=== PATIENT | female | born 1985 | race Caucasian/White ===

== ENCOUNTER 2020-11-28 12:32 | Outpatient (REF) | payer OTHER, SELFPAY ==
--- NOTE | 2020-11-28 10:30 | PAPFT_PTH ---
PATIENT: Allen Lopez LOC: [facility]#:[id number] AGE/SX: 35/F ROOM: RE11/28/[address]: Sepideh Skelton : 1985 BED: DIS: 11/28/2020 SPEC #: [id number] RECD: 11/29/20 13:11 STATUS: TANESHA REQ #: [id number] ZACH: 11/28/20 10:[address]: NafisaPatricia DEPT: [facility] Cytology RECD BY: Zoraida Romero ENTERED: 11/29/20 13:12 SP TYPE: PAPFT OTHR DR: Shelton Babcock Tissues: 1 - CX/ENDOCX FOR PAP SMEARS Procedures: PAP THIN PREP/[facility] Screening HPV DNA PROBE Comments: [id number] (CHLAMYDIA/GC)
[2020-11-28 20:32] LABS: Hemoglobin A1C 5.1 % (<5.7)
[2020-11-28 20:43] LABS: ALT 28 U/L (14-59); AST 18 U/L (15-37); Albumin 3.9 g/dL (3.4-5.0); Alkaline Phosphatase 63 U/L (46-116); Anion Gap 13.4 mmol/L (3-11); BUN 10 mg/dL (7-18); Bilirubin, Total 0.4 mg/dL (0.2-1.0); CO2 22.6 mmol/L (21.0-32.0); CREATININE 0.6 mg/dL (0.55-1.02); Calcium 8.9 mg/dL (8.5-10.1); Calculated LDL 119 mg/dL (<100); Chloride 104 mmol/L (98-107); Cholesterol 198 mg/dL (<200); Glucose 89 mg/dL (74-106); HDL Cholesterol 43 mg/dL (40-60); Potassium 4.2 mmol/L (3.5-5.1); Sodium 140 mmol/L (136-145); TSH 0.88 uIU/mL (0.36-3.74); Total Protein 7.2 g/dL (6.4-8.2); Triglyceride 180 mg/dL (<150)
[2020-11-30 10:25] LABS: Hep A Total Ab w Rflx IgM Negative (Negative)
[2020-11-30 10:28] LABS: HIV-1/2 Ag & Ab Screen Negative (Negative)
[2020-11-30 10:33] LABS: Hepatitis C Ab w Rflx HCV PCR Negative (Negative)
[2020-11-30 10:58] LABS: Syphilis Serology (RPR) Negative (Negative)
[2020-11-30 15:20] LABS: Chlamydia Result Negative (Negative); GC Result Negative (Negative)
== END 2020-11-28 12:33 | disposition home or self-care (01) ==
LOC: NCHCN 12:32
PROVIDERS: PCP Internal Medicine; Visit Provider Nurse Practitioner Family
DX: Z00.00 Encounter for general adult medical examination without abnormal findings (principal); Z68.41 Body mass index [BMI] 40.0-44.9, adult; Z13.220 Encounter for screening for lipoid disorders; Z13.1 Encounter for screening for diabetes mellitus; Z20.9 Contact with and (suspected) exposure to unspecified communicable disease; Z11.59 Encounter for screening for other viral diseases; Z11.4 Encounter for screening for human immunodeficiency virus [HIV]; Z12.4 Encounter for screening for malignant neoplasm of cervix; Z11.51 Encounter for screening for human papillomavirus (HPV)
CPT/HCPCS: 80053; 80061; 86709; 86803; 87389; 87491; 87591; 88142; 83036; 84443; 86592; 87624

== ENCOUNTER 2022-01-21 10:55 | Outpatient (REF) | payer SELFPAY ==
[2022-01-21 18:48] LABS: Bilirubin Negative (Negative); Blood Trace-intact (Negative); Clarity Cloudy (Clear); Glucose Negative (Negative); Ketones Negative (Negative); Leukocyte Esterase Trace (Negative); Nitrite Negative (Negative); Specific Gravity >= 1.030 (1.005-1.025); Urobilinogen 0.2 EU/dL (Up TO 0.2)
[2022-01-21 18:57] LABS: C & S Indicated? Yes; Crystals Many Amorphous HPF (Negative); Epithelial Cells Few HPF (Negative); RBC 0-2 HPF (0-2); WBC 0-2 HPF (0-5)
== END 2022-01-21 10:56 | disposition home or self-care (01) ==
LOC: NCHCN 10:55
PROVIDERS: PCP Internal Medicine; Visit Provider Nurse Practitioner Family
DX: R30.0 Dysuria (principal)
CPT/HCPCS: 81003; 81015; 87086

== ENCOUNTER 2022-08-04 17:53 | Outpatient (REF) | payer OTHER, SELFPAY ==
[2022-08-04 20:06] LABS: Bilirubin Negative (Negative); Blood Negative (Negative); Clarity Sl Cloudy (Clear); Glucose Negative (Negative); Ketones Negative (Negative); Leukocyte Esterase Moderate (Negative); Nitrite Negative (Negative)
[2022-08-04 20:22] LABS: Bacteria Moderate HPF (Negative); C & S Indicated? Yes; Casts 0-2 Hyaline LPF (Negative); Crystals Negative HPF (Negative); Epithelial Cells Few HPF (Negative); Mucus Negative (Negative); RBC 0-2 HPF (0-2)
== END 2022-08-04 17:54 | disposition home or self-care (01) ==
LOC: NCHCN 17:53
PROVIDERS: PCP Internal Medicine; Visit Provider Nurse Practitioner Family
DX: N89.8 Other specified noninflammatory disorders of vagina (principal); R30.0 Dysuria
CPT/HCPCS: 81003; 81015; 87086; 87480; 87510; 87660

== ENCOUNTER 2022-11-17 13:55 | Outpatient (REF) | payer OTHER, SELFPAY ==
[2022-11-17 19:52] LABS: ALT 35 U/L (14-59); AST 24 U/L (15-37); Albumin 3.8 g/dL (3.4-5.0); Alkaline Phosphatase 60 U/L (46-116); Anion Gap 12.1 mmol/L (3-11); BUN 8 mg/dL (7-18); Bilirubin, Total 0.5 mg/dL (0.2-1.0); CO2 22.9 mmol/L (21.0-32.0); CREATININE 0.9 mg/dL (0.55-1.02); Calcium 8.8 mg/dL (8.5-10.1); Calculated LDL 101 mg/dL (<100); Chloride 103 mmol/L (98-107); Cholesterol 171 mg/dL (<200); Glucose 98 mg/dL (74-106); HDL Cholesterol 42 mg/dL (40-60); Potassium 4.1 mmol/L (3.5-5.1); Sodium 138 mmol/L (136-145); Total Protein 7.6 g/dL (6.4-8.2); Triglyceride 141 mg/dL (<150)
== END 2022-11-17 13:56 | disposition home or self-care (01) ==
LOC: NCHCN 13:55
PROVIDERS: PCP Internal Medicine; Visit Provider Nurse Practitioner Family
DX: Z00.00 Encounter for general adult medical examination without abnormal findings (principal); Z13.220 Encounter for screening for lipoid disorders; Z13.228 Encounter for screening for other metabolic disorders
CPT/HCPCS: 80053; 80061

== ENCOUNTER 2024-11-16 20:32 | Outpatient (REF) | payer OTHER, SELFPAY ==
[2024-11-18 09:55] LABS: HIV-1/2 Ag & Ab Screen Negative (Negative)
[2024-11-18 10:06] LABS: Hepatitis C Ab w Rflx HCV PCR Negative (Negative)
[2024-11-18 10:44] LABS: Syphilis Serology (RPR) Negative (Negative)
== END 2024-11-16 20:33 | disposition home or self-care (01) ==
LOC: NCHCN 20:32
PROVIDERS: PCP Internal Medicine; Visit Provider Nurse Practitioner Family
DX: Z11.3 Encounter for screening for infections with a predominantly sexual mode of transmission (principal)
CPT/HCPCS: 86803; 87389; 86592

== ENCOUNTER 2024-11-17 20:15 | Outpatient (REF) | payer OTHER, SELFPAY ==
[2024-11-19 14:44] LABS: Bacterial Vaginosis (BV) Negative (Negative); Candida glabrata Negative (Negative); Candida species group Negative (Negative); Chlamydia Result Negative (Negative); GC Result Negative (Negative)
== END 2024-11-17 20:16 | disposition home or self-care (01) ==
LOC: NCHCN 20:15
PROVIDERS: PCP Internal Medicine; Visit Provider Nurse Practitioner Family
DX: Z11.3 Encounter for screening for infections with a predominantly sexual mode of transmission (principal)
CPT/HCPCS: 81513; 87481; 87491; 87591; 87661